=== PATIENT | female | born 1985 | race Caucasian/White ===

== ENCOUNTER 2018-11-22 15:51 | Emergency (ER) | payer MEDICAID ==
[~2018-11-22] VITALS: Ht 162.6 cm; Wt 70.0 kg
[~2018-11-22 15:51] MED LIST: BACDS PO; CLIN150C8 PO; HYDR-4383 PO; LIDO30CR23 TP; TRAM50TA2 PO; [UNRECOGNIZED DRUG - CODE] PO
[2018-11-22 16:24] VITALS: BP 134/79
== END 2018-11-22 20:00 | disposition left against medical advice (07) ==
LOC: ER 15:52
DX: R51 Headache (principal); H57.12 Ocular pain, left eye; Z53.21 Procedure and treatment not carried out due to patient leaving prior to being seen by health care provider

== ENCOUNTER 2019-04-04 14:16 | Emergency (ER) | payer MEDICAID ==
[~2019-04-04] VITALS: Ht 162.6 cm; Wt 67.4 kg
[2019-04-04 14:26] VITALS: BP 125/62
[2019-04-04] MEDS ORDERED: PRED20TA PO (15:05)
== END 2019-04-04 15:11 | disposition home or self-care (01) ==
LOC: ER 14:17
DX: R21 Rash and other nonspecific skin eruption (principal); Z86.14 Personal history of Methicillin resistant Staphylococcus aureus infection; Z88.1 Allergy status to other antibiotic agents; Z79.899 Other long term (current) drug therapy
CPT/HCPCS: 99283